=== PATIENT | female | born 1930 | race Caucasian/White ===

== ENCOUNTER → 2017-10-02 17:34 | Outpatient (CLI) | payer MEDICARE ==
[2014-12-28 13:43] VITALS: BMI 25.5
[~2017-10-02 17:34] MED LIST: CALCIUM 500 + D1 TAB PO; FEXOFENADINE H180 MG PO; FISH OIL 1,0001 CA1 PO; FLUTICASONE PRO16 GM NASAL; IPRAT-ALBUT 0.5-3 ML UPD; LASIX40 MG PO; LEVAQUIN500 MG PO; LOW DOSE ASPIRI81 M1 PO; MIRALAX17 GM PO; MUCINEX DM ER1 EAC1 PO; MULTI-DAY VITAM1 TAB PO; NYSTATIN ORAL SU5 ML PO; OSTEO BI-FLEX1 EAC1 PO; PEPCID20 MG PO; PRAVACHOL40 MG PO; VENTOLIN HFA18 GM INH
[2017-10-02 17:52] LABS: CALC OSMOLALITY 281 mosm/kg (275-300); CALCIUM 8.9 mg/dL (8.5-10.1); CARBON DIOXIDE 33.2 mmol/L (21.0-32.0); CHLORIDE - SERUM 102 mmol/L (98-107); CREATININE - SERUM 0.7 mg/dL (0.6-1.3); GLUCOSE 89 mg/dL (74-106); POTASSIUM - SERUM 4.4 mmol/L (3.5-5.1); SODIUM 141 mmol/L (136-145); UREA NITROGEN 17 mg/dL (7-18); eGFR NON AFRICAN AMERICAN 83 mL/min (90-120)
== END | disposition home or self-care (01) ==
LOC: D.LABREF 17:34
PROVIDERS: Internal Medicine
DX: J44.9 Chronic obstructive pulmonary disease, unspecified (principal); J18.9 Pneumonia, unspecified organism